=== PATIENT | female | born 1955 | race Caucasian/White ===

== ENCOUNTER → 2022-10-28 | Outpatient (CLI) | payer OTHER | END | disposition home or self-care (01) | LOC: RAH 11:31 | PROVIDERS: ATTEND Otolaryngology Plastic Surgery within the Head & Neck | DX: E04.1 Nontoxic single thyroid nodule (principal) | CPT/HCPCS: 76536 ==

== ENCOUNTER → 2023-03-16 | Outpatient (CLI) | payer OTHER ==
[~2023-03-16] MED LIST: IOHEXOL-350 75 ML VIAL IV ONE
== END | disposition home or self-care (01) ==
LOC: RAH 13:54
PROVIDERS: ATTEND Internal Medicine Medical Oncology
DX: C07 Malignant neoplasm of parotid gland (principal)
CPT/HCPCS: 70491; Q9967

== ENCOUNTER → 2024-11-28 | Outpatient (CLI) | payer OTHER ==
--- NOTE | 2024-11-28 20:54 | HMCIMG ---
EXAM: CT Neck With IV Contrast CLINICAL HISTORY: Malignant neoplasm of the parotid gland. TECHNIQUE: Contiguous axial images obtained through the neck with intravenous contrast. Reformatted/MPR images were performed. CT scan is done according to ALARA (As Low as Reasonably Achievable). COMPARISON: CT neck dated 03/16/2023. FINDINGS: Included intracranial substances, orbits, and paranasal sinuses are grossly unremarkable. The nasopharynx, oropharynx, oral cavity, hypopharynx, and larynx are grossly unremarkable. Interval reduction in the right parotid gland volume, likely secondary to prior therapy or atrophy. No recurrence or residual parotid mass is evident at present. The left parotid gland is within normal limits. The bilateral submandibular glands are within normal limits. Redemonstrated left lobe thyroid nodules with peripheral calcifications, the largest measuring up to 1.3 cm. No pathologically enlarged lymph nodes. Visualized included lung apices are grossly clear. Mild calcific atherosclerotic disease in the included aortic arch. No acute osseous abnormality. Mild degenerative osseous changes. IMPRESSION: Interval reduction in the right parotid gland volume, likely secondary to prior therapy or atrophy. No recurrence or residual parotid mass is evident at present. The left parotid gland is within normal limits. Redemonstrated left lobe thyroid nodules with peripheral calcifications, the largest measuring up to 1.3 cm. No adverse interval changes. /Solo
== END | disposition home or self-care (01) ==
LOC: RAH 11:18
PROVIDERS: ATTEND Internal Medicine Medical Oncology
DX: E04.2 Nontoxic multinodular goiter (principal); C07 Malignant neoplasm of parotid gland; I70.0 Atherosclerosis of aorta
CPT/HCPCS: 70491; Q9967